=== PATIENT | female | born 1980 | race Two or more races ===

== ENCOUNTER 2020-08-24 22:29 | Emergency (ER) | payer SELFPAY ==
[2020-08-24 22:46] VITALS: BP 143/61; PULSE 82
[2020-08-24] MEDS ORDERED: HYDROmorphone 1 MG/ML Syringe IM ONE (23:37)
[2020-08-24] MEDS ORDERED: Ondansetron 4 MG Tab.DIS PO ONE (23:37)
[2020-08-24] MEDS ORDERED: Ketorolac 60 MG/2 ML SDV IM ONE (23:37)
[2020-08-24] MEDS ORDERED: Cyclobenzaprine 10 MG Tab PO ONE (23:38)
--- NOTE | 2020-08-25 00:01 | EDM.PDOC ---
ED HPI GENERAL MEDICAL PROBLEM - General Chief Complaint: Back Pain or Injury Stated Complaint: RT SIDE PAIN Time Seen by Provider: 08/24/20 23:39 - History of Present Illness INITIAL COMMENTS - FREE TEXT/NARRATIVE: HISTORY AND PHYSICAL: History of present illness: This is a 39-year-old female with no history for hypertension, diabetes, liver, lung, kidney problems who presents ER today secondary to bilateral lower back pain. Patient denies any recent fevers, shakes, chills, nausea, vomiting, diarrhea, dysuria, frequency, urgency, hematuria. Patient denies any weakness to her upper or lower extremities. Patient denies any paresthesias around her perineal region. Patient has any loss of bowel or bladder function. Patient has any history of IVDA. Patient denies any recent weight loss or weight gain. Patient denies any recent infections. Patient reports that the pain started yesterday. Patient reports pain increases with rotation of her torso or bending over. Patient reports that the pain is not colicky and is constant in nature but worsened with movement. Patient reports that she has been taking ibuprofen at home without any significant relief. Review of systems: As per history of present illness and below otherwise all systems reviewed and negative. Past medical history: As per history of present illness and as reviewed below otherwise noncontributory. Surgical history: As per history of present illness and as reviewed below otherwise noncontributory. Social history: No reported history of drug or alcohol abuse. Family history: As per history of present illness and as reviewed below otherwise noncontributory. Physical exam: This patient was seen and evaluated during the 2019 SARS-CoV-2 novel coronavirus pandemic period. Community viral transmission is ongoing at time of this encounter and the emergency department is operating under pandemic response procedures. Constitutional: Patient is oriented to person, place, and time. Appears well- developed and well-nourished. No distress. HEENT: Moist mucous membranes Head: Normocephalic and atraumatic Eyes: Right eye exhibits no discharge. Left eye exhibits no discharge. No scleral icterus Neck: Normal range of motion. No tracheal deviation present. Cardiovascular: Normal rate and regular rhythm. Pulmonary: Effort normal, no respiratory distress. Abdominal: No distention Musculoskeletal: Normal range of motion Neurologic: Alert and oriented to person, place and time. Skin: [place], warm and dry. Psychiatric: Normal mood and affect. Behavior is normal. Judgment and thought content normal. Nursing note and vital signs have been reviewed Patient is ER physical exam is significant for tenderness to palpation to her lower back bilaterally. Patient's right side appears to be slightly more tender than the left side. Patient has reproducible pain with rotation of her torso. Patient has excruciating pain when trying to sit up in the chair here in the ED. Patient has pain with flexion of her torso. Neuro: A&Ox3. Cranial nerves II-XII grossly intact, 5/5 strength to bilateral upper and lower extremities, sensation intact to bilateral upper and lower extremities, no nystagmus, PERRLA, EOMI, normal speech, proprioception intact to bilateral lower extremities, normal finger to nose test, gait normal Diagnostics: Urinalysis, CT the abdomen pelvis to rule out stone. Therapeutics: Dilaudid, Toradol IM, Zofran, Flexeril p.o. Assessment and plan: This is a 39-year-old female who presents ER today complaining of back pain that appears to be more consistent with mechanical back strain rather than renal colic. Patient will get a CT scan of her back to further evaluate this. Patient will be given a dose of Dilaudid Toradol and Flexeril to assist her with her pain and discomfort. Patient's urinalysis will be checked to rule out UTI. Patient's labs are all within normal limits with a normal UA. Patient's CT scan of her abdomen pelvis is normal. Patient reports that she does feel improved after the medication given in the ED. Patient be discharged home with lidocaine patch, Flexeril, ibuprofen for the next 2 to 3 days. Patient has been instructed to stay home from work for 2 days. Reassessment at the time of disposition demonstrates that the patient is in no acute distress. The patient has remained stable throughout the entire ED visit and is without objective evidence for acute process requiring urgent intervention or hospitalization. The patient is stable for discharge, counseling is provided as documented above, discussed symptomatic treatment and specific conditions for return. I have spoken with the patient/caregiver and discussed todays findings, in addition to providing specific details for the plan of care. Questions are answered and there is agreement with the plan. Definitive disposition and diagnosis as appropriate pending reevaluation and review of above. lower back Pain Score (Numeric/FACES): 10 - Related Data Allergies Allergy/AdvReac Type Severity Reaction Status Date / Time Penicillins Allergy Rash Verified 08/24/20 22:42 Home Meds: Home Meds Cyclobenzaprine [Flexeril] 10 mg PO TID PRN #20 tab 08/25/20 [Rx] Ibuprofen 600 mg PO Q6HR PRN #30 tablet 08/25/20 [Rx] Lidocaine 5% [Lidoderm 5%] 1 patch TOP DAILY PRN #7 patch 08/25/20 [Rx] traMADol [Ultram] 50 mg PO Q6H PRN #12 tab 08/25/20 [Rx] Past Medical History - Past Health History Medical/Surgical History: Denies Medical/Surgical History HEENT History: Reports: None Cardiovascular History: Reports: None Respiratory History: Reports: None Gastrointestinal History: Reports: None Genitourinary History: Reports: None [employer] History: Reports: Musculoskeletal History: Reports: None Neurological History: Reports: None Psychiatric History: Reports: None Endocrine/Metabolic History: Reports: None Insulin Pump Model and Hamper Maker Machine: None Hematologic History: Reports: None Immunologic History: Reports: None Oncologic (Cancer) History: Reports: None Dermatologic History: Reports: None - Infectious Disease History Infectious Disease History: Reports: None - Past Surgical History Head Surgeries/Procedures: Reports: None GI Surgical History: Reports: None Female Surgical History: Reports: Section Musculoskeletal Surgical History: Reports: None Social & Family History - Family History Family Medical History: No Pertinent Family History - Caffeine Use Caffeine Use: Reports: None - Recreational Drug Use Recreational Drug Use: No ED ROS GENERAL - Review of Systems Review Of Systems: See Below ED EXAM, GENERAL - Physical Exam Exam: See Below Course - Vital Signs Last Recorded V/S: Last Vital Signs Temp 97.3 F 08/24/20 22:40 Pulse 82 08/24/20 22:40 Resp 18 08/24/20 22:40 BP 143/61 H 08/24/20 22:40 Pulse Ox 97 08/24/20 22:40 - Orders/Labs/Meds Labs: Laboratory Tests 08/25/20 08/25/20 Range/Units 00:45 00:45 Urine Color YELLOW Urine Appearance CLEAR Urine pH 6.5 (5.0-8.0) Ur Specific [place] 1.025 (1.001-1.035) Urine Protein NEGATIVE (NEGATIVE) mg/dL Urine Glucose (UA) NEGATIVE (NEGATIVE) mg/dL Urine Ketones NEGATIVE (NEGATIVE) mg/dL Urine Occult Blood NEGATIVE (NEGATIVE) Urine Nitrite NEGATIVE (NEGATIVE) Urine Bilirubin NEGATIVE (NEGATIVE) Urine Urobilinogen 0.2 (<2.0) EU/dL Ur Leukocyte Esterase TRACE H (NEGATIVE) Urine RBC 0-2 (0-2/HPF) Urine WBC 0-2 (0-5/HPF) Ur Epithelial Cells FEW (NONE-FEW) Amorphous Sediment LIGHT (NEGATIVE) Urine Bacteria 1+ H (NEGATIVE) Urine Mucus LIGHT (NONE-MOD) Urine HCG, Qual NEGATIVE (NEGATIVE) Meds: Medications Discontinued Medications Generic Name Dose Route Start Last Admin Trade Name Freq PRN Reason Stop Dose Admin Cyclobenzaprine HCl 10 mg 08/24/20 23:38 08/24/20 23:56 Cyclobenzaprine 10 Mg Tab PO 08/24/20 23:39 10 mg ONETIME ONE Administration Hydromorphone HCl 1 mg 08/24/20 23:37 08/24/20 23:56 Hydromorphone 1 Mg/Ml Syringe IM 08/24/20 23:38 1 mg ONETIME ONE Administration Ketorolac Tromethamine 60 mg 08/24/20 23:37 08/24/20 23:55 Ketorolac 60 Mg/2 Ml Sdv IM 08/24/20 23:38 60 mg ONETIME ONE Administration Lidocaine 700 mg 08/25/20 01:51 08/25/20 02:20 Lidocaine 5% 700 Mg Patch TOP 08/25/20 01:52 700 mg ONETIME ONE Administration Ondansetron HCl 4 mg 08/24/20 23:37 08/24/20 23:56 Ondansetron 4 Mg Tab.Dis PO 08/24/20 23:38 4 mg ONETIME ONE Administration Departure - Departure Time of Disposition: 02:25 Disposition: Home, Self-Care 01 Condition: Good Clinical Impression: Low back pain - Discharge Information Instructions: Acute Back Pain, Adult, Pain Medicine Instructions, [id number] Referrals: PCP,None [Primary Care Provider] - Forms: ED Department Discharge Additional Instructions: You were seen and evaluated in the ER today secondary to pain to your lower back. The CT scan and urinalysis were normal. You will be sent home with a prescription for lidocaine patches, Flexeril, and Ultram to assist you with your pain. Please make appointment see your family doctor in the next 2 to 3 days for reevaluation. The following information is given to patients seen in the emergency department who are being discharged to home. This information is to outline your options for follow-up care. We provide all patients seen in our emergency department with a follow-up referral. The need for follow-up, as well as the timing and circumstances, are variable depending upon the specifics of your emergency department visit. If you don't have a primary care physician on staff, we will provide you with a referral. We always advise you to contact your personal physician following an emergency department visit to inform them of the circumstance of the visit and for follow-up with them and/or the need for any referrals to a consulting specialist. The emergency department will also refer you to a specialist when appropriate. This referral assures that you have the opportunity for follow-up care with a specialist. All of these measure are taken in an effort to provide you with optimal care, which includes your follow-up. Under all circumstances we always encourage you to contact your private physician who remains a resource for coordinating your care. When calling for follow-up care, please make the office aware that this follow-up is from your recent emergency room visit. If for any reason you are refused follow-up, please contact the [facility] Emergency Department at and asked to speak to the emergency department charge nurse. [facility] [address] [place] [address] [place] [address] Sepsis Event Note (ED) - Evaluation Sepsis Screening Result: No Definite Risk - Focused Exam Vital Signs: Vital Signs Temp Pulse Resp BP Pulse Ox 08/24/20 22:40 97.3 F 82 18 143/61 H 97
[2020-08-25] MEDS ORDERED: Lidocaine 5% 700 MG Patch TOP ONE (01:51)
--- NOTE | 2020-08-25 02:22 | CT ---
INDICATION: Back pain. COMPARISON: None available TECHNIQUE: CT examination of the abdomen and pelvis was performed without contrast enhancement using 2.5 mm thick axial sections from the lung bases through the pubic symphysis. Oral contrast was not administered. Please note that all CT scans at this facility use dose modulation, iterative reconstruction, and/or weight-based dosing when appropriate to reduce radiation dose to as low as reasonably achievable. FINDINGS: In the abdomen, the unenhanced liver, spleen, pancreas, and adrenals are normal in appearance. The unenhanced kidneys are normal in appearance. The gallbladder is normal in appearance. The abdominal aorta is normal in caliber with no sign of dilatation. There is no sign of retroperitoneal mass or adenopathy. The stomach, loops of small bowel, and colon in the abdomen are normal in appearance. There is a small fat containing periumbilical hernia. In the pelvis, the appendix is normal in appearance with no sign of inflammatory process. The loops of small bowel and colon in the pelvis are normal in appearance. The uterus and adnexal regions are normal in appearance. The urinary bladder is normal in appearance. There is no sign of pelvic or inguinal mass or adenopathy. There is no sign of free air or free fluid in the abdomen or pelvis. The lung bases are clear. The osseous structures are normal in appearance for the patient`s age. The lumbar spine is normal in appearance with no sign of anything to correlate with history of back pain. I do not see any sign of any disc bulge or herniation. There is no sign of any foraminal stenosis. IMPRESSION: Normal CT of the abdomen without contrast. Normal CT of the pelvis without contrast. Nothing seen to correlate with history of back pain, with normal appearance of the lumbar spine. Please note that all CT scans at this facility use dose modulation, iterative reconstruction, and/or weight-based dosing when appropriate to reduce radiation dose to as low as reasonably achievable. Dictated by Enoc Flores MD @ Aug 25 2020 2:18AM Signed by Dr. Enoc Flores @ Aug 25 2020 2:21AM
== END 2020-08-25 02:49 | disposition home or self-care (01) ==
LOC: MW.ED 22:29
DX: M54.5 Low back pain (principal); Z88.0 Allergy status to penicillin
CPT/HCPCS: 74176; 81001; 81025; 96372; 99284; A9270; J1170; J1885; 99283

== ENCOUNTER 2024-02-24 11:01 | Day surgery (SDC) | payer SELFPAY ==
[2024-02-24] MEDS: Lactated Ringers 1,000 ML IV SCH (11:38)
[2024-02-24] MEDS ORDERED: Propofol 200 MG/20 ML SDV ONE (11:44)
[2024-02-24] MEDS ORDERED: Lidocaine 2% 5 ML SDV ONE (11:44)
[2024-02-24] MEDS ORDERED: Lactated Ringers 1,000 ML IV SCH (12:15)
[2024-02-24 12:17] VITALS: BP 121/77
[2024-02-24 12:37] VITALS: PULSE 72
== END 2024-02-24 12:35 | disposition home or self-care (01) ==
LOC: MW.SDS 11:01
PROVIDERS: ATTEND Surgery
DX: K29.50 Unspecified chronic gastritis without bleeding (principal); B96.81 Helicobacter pylori [H. pylori] as the cause of diseases classified elsewhere; K21.00 Gastro-esophageal reflux disease with esophagitis, without bleeding; K44.9 Diaphragmatic hernia without obstruction or gangrene
CPT/HCPCS: 43239; 81025; J2704; J7120; 00731; J3490

== ENCOUNTER 2024-09-16 21:28 | Observation (INO) | payer SELFPAY ==
[2024-09-16] MEDS ORDERED: Sodium Chloride 0.9% 2.5 ML Syringe FLUSH PRN (23:03)
[2024-09-16] MEDS ORDERED: Sodium Chloride 0.9% 10 ML Syringe FLUSH PRN (23:03)
[2024-09-16] MEDS: Ketorolac 30 MG/ML SDV IVPUSH ONE (23:16)
[2024-09-16] MEDS: Sodium Chloride 0.9% 1,000 ML IV ONE (23:17)
[2024-09-16 23:29] LABS: BASOPHILS ABSOLUTE AUTO 0.04 K/uL (0.00-0.20); BASOPHILS PERCENT AUTO 0.3 % (0.0-1.0); EOSINOPHILS PERCENT AUTO 0.8 % (0.0-6.0); HEMATOCRIT 39.1 % (37.0-47.0); HEMOGLOBIN 13.4 g/dL (12.0-16.0); IMMATURE GRAN ABSOLUTE AUTO 0.02 K/uL (0.00-0.05); IMMATURE GRAN PERCENT AUTO 0.2 % (0.0-0.4); LYMPHOCYTES ABSOLUTE AUTO 2.62 K/uL (1.00-4.80); MEAN CORPUSCULAR HEMOGLOBIN 28.4 pg (28.0-32.0); MEAN CORPUSCULAR HGB CONC 34.3 g/dL (32.0-36.0); MEAN CORPUSCULAR VOLUME 82.8 fL (83.0-99.0); MEAN PLATELET VOLUME 10.3 fL (9.4-12.3); MONOCYTES ABSOLUTE AUTO 1.35 K/uL (0.00-0.80); MONOCYTES PERCENT AUTO 11.3 % (0.0-8.0); NEUTROPHILS ABSOLUTE AUTO 7.79 K/uL (1.80-7.70); NEUTROPHILS PERCENT AUTO 65.4 % (41.0-71.0); PLATELET COUNT,PLT 241 K/uL (150-400); RED BLOOD CELL COUNT 4.72 M/uL (4.10-5.30); WHITE BLOOD CELL COUNT,WBC 11.92 K/uL (3.9-11.3)
[2024-09-16] MEDS: Iopamidol 755 Mg/ML 100 ML Bottle IVPUSH ONE (23:32)
[2024-09-16 23:53] LABS: A/G RATIO 0.8 (0.9-1.6); ALBUMIN 3.3 g/dL (3.4-5.0); BILIRUBIN TOTAL 0.3 mg/dL (0.2-1.0); CALCIUM 8.9 mg/dL (8.5-10.1); CARBON DIOXIDE,CO2 28.2 mmol/L (21.0-32.0); CREATININE 0.8 mg/dL (0.6-1.0); EST CRCL DRUG DOSING (CG) 86.63 mL/min; MAGNESIUM 1.8 mg/dL (1.8-2.4); POTASSIUM,K 3.8 mmol/L (3.5-5.1); PROTEIN TOTAL,TP 7.4 g/dL (6.4-8.2)
[2024-09-17 00:18] LABS: LACTIC ACID 0.8 mmol/L (0.4-2.0)
[2024-09-17] MEDS: Sodium Chloride 0.9% 1,000 ML IV ONE (00:22)
[2024-09-17] MEDS: HYDROmorphone 0.5 MG/0.5 ML Syringe IVPUSH ONE (00:24)
[2024-09-17] MEDS: Ondansetron 4 MG/2 ML SDV IVPUSH ONE (00:25)
[2024-09-17] MEDS: Piperacillin/Tazobactam 4.5 GM in Sodium Chloride 0.9% 100 ML IV ONE (00:26)
[2024-09-17] MEDS ORDERED: Acetaminophen/HYDROcodone 325-5 MG Tab PO PRN (01:32)
[2024-09-17] MEDS ORDERED: Ondansetron 4 MG/2 ML SDV IVPUSH PRN ×2 (01:32→12:13)
[2024-09-17] MEDS ORDERED: Acetaminophen 325 MG Tab PO PRN (01:32)
[2024-09-17] MEDS ORDERED: Naloxone 0.4 MG/ML SDV IVPUSH PRN ×2 (01:32→12:13)
[2024-09-17] MEDS: Sodium Chloride 0.9% 1,000 ML IV SCH (02:00)
[2024-09-17 02:10] LABS: APPEARANCE,URINE CLEAR; BILIRUBIN,URINE NEGATIVE (NEGATIVE); COLOR,URINE YELLOW; GLUCOSE,URINE NEGATIVE (NEGATIVE); KETONES,URINE 15 mg/dL (NEGATIVE); LEUKOCYTE ESTERASE,URINE NEGATIVE (NEGATIVE); NITRITE,URINE NEGATIVE (NEGATIVE); OCCULT BLOOD,URINE SMALL (NEGATIVE); PH,URINE 5.5 (5.0-8.0); PROTEIN,URINE NEGATIVE (NEGATIVE); UROBILINOGEN,URINE 0.2 EU/dL (<2.0)
[2024-09-17 02:28] LABS: BACTERIA,URINE FEW (NEGATIVE); EPITHELIAL CELLS,URINE FEW (NONE-FEW); MUCUS,URINE MODERATE (NONE-MOD)
[2024-09-17] MEDS: Piperacillin/Tazobactam 3.375 GM in Sodium Chloride 0.9% 100 ML IV SCH (03:09)
[2024-09-17] MEDS: Piperacillin/Tazobactam 4.5 GM in Sodium Chloride 0.9% 100 ML IV SCH (03:44)
[2024-09-17] MEDS: HYDROmorphone 2 MG/ML Syringe IVPUSH PRN (08:04)
[2024-09-17] MEDS ORDERED: propofoL 500 MG/50 ML 50 ML ONE (11:04)
[2024-09-17] MEDS ORDERED: fentaNYL 100 MCG/2 ML SDV ONE (11:06)
[2024-09-17] MEDS ORDERED: dexmedeTOMIDine HCl 200 MCG/2 ML SDV ONE (11:08)
[2024-09-17] MEDS ORDERED: Sodium Chloride 0.9% 20 ML ONE (11:08)
[2024-09-17] MEDS ORDERED: Ketamine HCL/NACL, ISO-OSM 50 MG/5 ML Syringe ONE (11:13)
[2024-09-17] MEDS ORDERED: HYDROmorphone 1 MG/ML Syringe IVPUSH PRN (12:13)
[2024-09-17] MEDS ORDERED: fentaNYL 50 MCG/ML SDV IVPUSH PRN (12:13)
[2024-09-17] MEDS ORDERED: Phenylephrine HCl In 0.9% NaCl 1 MG/10 ML Syringe IVPUSH PRN (12:13)
[2024-09-17] MEDS ORDERED: Morphine 2 MG/ML SYRINGE IVPUSH PRN (12:13)
[2024-09-17] MEDS ORDERED: Metoclopramide 10 MG/2 ML SDV IVPUSH PRN (12:13)
[2024-09-17] MEDS ORDERED: Albuterol 0.083% 2.5 MG/3 ML Neb Soln NEB PRN (12:13)
[2024-09-17] MEDS ORDERED: Lidocaine 1% with EPINEPHrine 1:100,000 10 ML MDV ONE (12:50)
[2024-09-17] MEDS ORDERED: Ketorolac 30 MG/ML SDV ONE (13:03)
[2024-09-17] MEDS ORDERED: Ondansetron 4 MG/2 ML SDV ONE (13:03)
[2024-09-17 16:00] VITALS: BP 130/65; PULSE 80
== END 2024-09-17 16:01 | disposition home or self-care (01) ==
LOC: MW.ED 21:28 → MW.MS 09-17 01:21
PROVIDERS: ADMIT Surgery; ATTEND Surgery
DX: K61.1 Rectal abscess (principal); K64.8 Other hemorrhoids; K21.9 Gastro-esophageal reflux disease without esophagitis
CPT/HCPCS: 36415; 46040; 74018; 74177; 80053; 81001; 83605; 83690; 83735; 84703; 85025; 87040; 87070; 87075; 87205; 96361; 96365; 96375; 99285; J1171; J1885; J2405; J2543; J2704; J3010; J7030; Q9967; 00902; 96376; 99283; G0378; J3490